=== PATIENT | female | born 1985 | race African-American/Black ===

== ENCOUNTER 2018-07-15 13:19 | Emergency (ER) | payer MEDICAID ==
[~2018-07-15] VITALS: Ht 160 cm; Wt 55.0 kg
[2018-07-15 13:40] VITALS: BP 120/65
[2018-07-15] MEDS ORDERED: METOCLOPRAMIDE HCL 10MG TABLET PO ONE (16:45)
[2018-07-15] MEDS ORDERED: IBUPROFEN 400MG TABLET PO ONE (16:45)
[2018-07-15] MEDS ORDERED: DIPHENHYDRAMINE 25MG CAPSULE PO ONE (16:45)
== END 2018-07-15 19:07 | disposition left against medical advice (07) ==
LOC: ER 13:19
DX: R51 Headache (principal); R05 Cough; R09.81 Nasal congestion
CPT/HCPCS: 81025; 99284; J8597; Q0163